=== PATIENT | male | born 1985 | race Caucasian/White ===

== ENCOUNTER 2023-01-05 11:01 | Emergency (ER) | payer OTHER ==
[2023-01-05] MEDS ORDERED: Norflex 60 MG/2 ML IM ONE (11:18)
[2023-01-05] MEDS ORDERED: TORAdol 30 mg Injection IM ONE (11:18)
[2023-01-05] MEDS ORDERED: TORAdol 30 mg Injection ONE (11:26)
[2023-01-05] MEDS ORDERED: Cyclobenzaprine 10 MG PO ONE (11:28)
[2023-01-05] MEDS ORDERED: Cyclobenzaprine 10 MG ONE (11:31)
[2023-01-05 12:20] VITALS: BP 113/70; O2SAT 100
--- NOTE | 2023-01-05 12:31 | ERPHSYRPT ---
- History of Present Illness Time Seen by Provider: 01/05/23 11:07 Source: patient Exam Limitations: no limitations Patient Subjective Stated Complaint: hurt back yesterday Triage Nursing Assessment: Patient states he was lifting a truck frame yesterday 01/04/23 around 1800 and hurt his back - pain is getting progressively worse. Physician History: 37-year-old male history of hypertension presented to the ER with chief complaint of left upper back pain after he was lifting a truck frame yesterday with moderate to severe sharp pain sudden onset, nonradiating, more with movement/twisting, deep breathing, better with rest pain without difficulty breathing otherwise. Denies any midline back pain. Has not taken any medicine at home until now. Timing/Duration: yesterday, constant, sudden Method of Injury: lifting Quality: sharp, throbbing Back Pain Location: paraspinous muscles Severity of Pain-Max: moderate Severity of Pain-Current: moderate Modifying Factors: Improves With: immobilization. Worsens With: movement Associated Symptoms: muscle spasms, No lower back pain Previous symptoms: no prior history Allergies/Adverse Reactions: No Known Allergies Allergy (Verified 01/05/23 11:14) Home Medications: Lisinopril 10 mg [Zestril 10 MG] 10 mg PO DAILY 01/05/23 [History] Nadolol [Corgard] 80 mg PO DAILY 01/05/23 [History] nadoloL [Nadolol] 40 mg PO DAILY 01/05/23 [History] Hx Tetanus, Diphtheria Vaccination/Date Given: No Hx Influenza Vaccination/Date Given: No Hx Pneumococcal Vaccination/Date Given: No Immunizations Up to Date: Yes Travel Risk - International Travel Have you traveled outside of the country in past 3 weeks: No - Coronavirus Screening Are you exhibiting any of the following symptoms?: No Close contact with a COVID-19 positive Pt in past 14-21 Days: No - Vaccine Status Have you recieved a Covid-19 vaccination: No - Review of Systems Constitutional: No Symptoms Ears, Nose, & Throat: No Symptoms Respiratory: No Symptoms Cardiac: No Symptoms Abdominal/Gastrointestinal: No Symptoms Genitourinary Symptoms: No Symptoms Musculoskeletal: Back Pain Neurological: No Symptoms Psychological: No Symptoms Endocrine: No Symptoms Hematologic/Lymphatic: No Symptoms - Past Medical History Pertinent Past Medical History: Yes Neurological History: Migraines ENT History: No Pertinent History Cardiac History: Hypertension Respiratory History: No Pertinent History Endocrine Medical History: No Pertinent History Musculoskeletal History: No Pertinent History GI Medical History: No Pertinent History History: No Pertinent History Psycho-Social History: No Pertinent History Male Reproductive Disorders: No Pertinent History - Past Surgical History Past Surgical History: Yes Neuro Surgical History: No Pertinent History Cardiac: No Pertinent History Respiratory: No Pertinent History Gastrointestinal: No Pertinent History Genitourinary: No Pertinent History Musculoskeletal: No Pertinent History Male Surgical History: No Pertinent History Other Surgical History: lithotripsy and scope and laser for kidney stones - Social History Smoking Status: Never smoker Exposure to second hand smoke: No Drug Use: none Patient Lives Alone: No - Nursing Vital Signs Nursing Vital Signs: Initial Vital Signs Pulse Rate 66 01/05/23 11:01 Respiratory Rate 18 01/05/23 11:01 Blood Pressure 118/78 01/05/23 11:01 O2 Sat by Pulse Oximetry 99 01/05/23 11:01 Pain Scale Pain Intensity 0 - Physical Exam General Appearance: no apparent distress, alert Eye Exam: PERRL/EOMI Ears, Nose, Throat Exam: normal ENT inspection, pharynx normal, moist mucous membranes Neck Exam: normal inspection, non-tender, supple, full range of motion Respiratory Exam: normal breath sounds, lungs clear Cardiovascular Exam: regular rate/rhythm, normal heart sounds Gastrointestinal Exam: soft, normal bowel sounds, No tenderness Back Exam: normal inspection, muscle spasm, point tenderness (Left paraspinal and posterior lower ribs without crepitus.), No vertebral tenderness Extremity Exam: normal inspection, normal range of motion Neurologic Exam: alert, oriented x 3, cooperative Skin Exam: normal color SpO2 Interpretation: normal SpO2: 100 O2 Delivery: Room Air Ordered Tests: Active Orders 24 hr Category Date Time Status RIBS UNILATERAL Stat Exams 01/05/23 11:19 Taken Medication Summary Discontinued Medications Generic Name Dose Route Start Last Admin Trade Name Freq PRN Reason Stop Dose Admin Cyclobenzaprine HCl 10 mg 01/05/23 11:28 01/05/23 11:31 Cyclobenzaprine Hcl 10 Mg Tablet PO 01/05/23 11:29 10 mg STAT ONE Administration Cyclobenzaprine HCl Confirm 01/05/23 11:31 Cyclobenzaprine Hcl 10 Mg Tablet Administered 01/05/23 11:32 Dose 10 mg .ROUTE .STK-MED ONE Ketorolac Tromethamine 30 mg 01/05/23 11:18 01/05/23 11:29 Ketorolac Tromethamine 30 Mg/Ml Inj IM 01/05/23 11:19 30 mg STAT ONE Administration Ketorolac Tromethamine Confirm 01/05/23 11:26 Ketorolac Tromethamine 30 Mg/Ml Inj Administered 01/05/23 11:27 Dose 60 mg .ROUTE .STK-MED ONE Orphenadrine Citrate 60 mg 01/05/23 11:18 01/05/23 11:34 Orphenadrine Citrate 60 Mg/2 Ml Vial IM 01/05/23 11:19 Not Given STAT ONE - Progress Progress: pain not gone completely, re-examined Progress Note: 01/05/23 12:28 37-year-old male history of hypertension presented to the ER with chief complaint of left upper back pain after he was lifting a truck frame yesterday with moderate to severe sharp pain sudden onset, nonradiating, more with movement/twisting, deep breathing, better with rest pain without difficulty breathing otherwise. Denies any midline back pain. Has not taken any medicine at home until now. Patient does have point tenderness in the left posterior ribs on the lower chest wall. No crepitus. Lungs bilateral clear to auscultation. Not in any distress. No midline tenderness at all. Obtain rib series which is negative for acute fracture reviewed by me. Official report is pending. Given Toradol and Flexeril, feeling better on reevaluation. We will continue with Flexeril and ibuprofen to go home and outpatient follow-up recommended. Discussed signs symptoms of worsening needing return to ER which he seems understanding Counseled pt/family regarding: diagnosis, need for follow-up, rad results - Departure Departure Disposition: Home Clinical Impression: Chest wall muscle strain Condition: Stable Critical Care Time: No Referrals: SUKUMAR JIMENEZ [Primary Care Provider] - Follow up with PCP 1 day Instructions: Back Muscle Strain (DC) Additional Instructions: Take Tylenol/ibuprofen as needed. Follow-up with primary care for reevaluation. Avoid exertional activity/lifting heavy object. Return to ER for worsening pain, difficulty breathing or if having pain in the midline/vertebrae numbness tingling weakness of extremities etc. Prescriptions: Ibuprofen 600 mg PO Q6HPRN PRN 10 Days #20 tablet PRN Reason: Pain Cyclobenzaprine HCl 10 mg [Flexeril 10 MG] 10 mg PO TID #20 tablet
[2023-01-05 12:43] VITALS: PULSE 50
--- NOTE | 2023-01-05 19:12 | XRAY ---
Indication: Left posterior pain. Comparison: None 2 view left ribs demonstrates mild acromioclavicular degenerative changes and tiny splenic calcified granulomas. No other bony, articular, or soft tissue abnormalities.
== END 2023-01-05 12:46 | disposition home or self-care (01) ==
LOC: ED 11:01
DX: S29.011A Strain of muscle and tendon of front wall of thorax, initial encounter (principal); X50.0XXA Overexertion from strenuous movement or load, initial encounter; I10 Essential (primary) hypertension; Z79.899 Other long term (current) drug therapy; Z28.310 Unvaccinated for COVID-19
CPT/HCPCS: 71100; 96372; 99283; J1885; A9270-GY